=== PATIENT | female | born 1960 | race African-American/Black ===

== ENCOUNTER 2017-08-12 17:47 | Emergency (ER) | payer MEDICAID, OTHER ==
[~2017-08-12] VITALS: Ht 165.1 cm; Wt 90.0 kg
[~2017-08-12 17:47] MED LIST: AMIT75 PO; DICY1TAB26 PO; HYDR-2768 PO; PANT20 PO; PERC10TA27 PO
[2017-08-12] MEDS ORDERED: IOHEXOL 350 MG/ML 10 ML VIAL (for RAD DIAG) IVCONTRAST ONE (17:48)
[2017-08-12 17:56] VITALS: BP 178/97; PULSE 74; RESP 15; TEMP 98; O2SAT 99
[2017-08-12] MEDS ORDERED: SODIUM CHLORIDE 0.9% FLUSH 10 ML FLUSH IV FLUSH PRN (18:30)
--- NOTE | 2017-08-12 18:30 | PD ---
HPI Chief Complaint: Pain: Acute or Chronic Time Seen by Provider: 18:18 Travel History International Travel<30 days: No Contact w/Intl Traveler<30days: No Traveled to known affect area: No History of Present Illness HPI 57-year-old female presents for evaluation of left lower quadrant abdominal pain /left-sided lower back pain. Symptoms started 4 days ago. She describes it as a aching pain which is constant but worse when walking. Denies any dysuria, hematuria, flank pain, fevers or chills, nausea or vomiting, diarrhea or constipation, vaginal bleeding or discharge. She is not sexually active. She is postmenopausal. She has no other complaints at this time. PFSH Past Medical History Autoimmune Disease: Yes (FIBROMYALGIA) Anxiety: Yes Diminished Hearing: No Fibromyalgia: Yes Headaches: Yes Hypertension: Yes Musculoskeletal: Yes (CHRONIC BACK/LEG MUSCLE SPASMS, SCIATICA) Neurologic: Yes (C 5-6 "SPACED OUT") Immunizations Current: No Myocardial Infarction: Yes ?: Not Menopausal: Yes : 3 Para: 3 Tubal Ligation: Yes Social History Alcohol Use: No Tobacco Use: Yes (1/2 PPD) Substance Use: No Allergies-Medications (Allergen,Severity, Reaction): Coded Allergies: No Known Allergies (Verified Adverse Reaction, Unknown, 08/12/17) Reported Meds & Prescriptions Reported Meds & Active Scripts Active Naproxen 500 Mg Tab 500 Mg PO BID 10 Days Bentyl (Dicyclomine HCl) 20 Mg Tab 20 Mg PO Q8 Protonix (Pantoprazole Sodium) 20 Mg Tab 20 Mg PO DAILY Reported Hctz (Hydrochlorothiazide) 25 Mg Tab 25 Mg PO TID Percocet 10-325 mg (Oxycodone-Acetaminophen 10-325 mg) Oxycodone 10/325 Acetaminophen Tab 1 Tab PO Q6H PRN Elavil 75 Mg Tab (Amitriptyline HCl) 75 Mg Tab 75 Mg PO HS Review of Systems Except as stated in HPI: all other systems reviewed are Neg Physical Exam Narrative GENERAL: Well-developed well-nourished female no acute distress SKIN: Warm and dry. HEAD: Atraumatic. Normocephalic. EYES: Pupils equal and round. No scleral icterus. No injection or drainage. ENT: No nasal bleeding or discharge. Mucous membranes pink and moist. NECK: Trachea midline. No JVD. CARDIOVASCULAR: Regular rate and rhythm. No murmur appreciated. RESPIRATORY: No accessory muscle use. Clear to auscultation. Breath sounds equal bilaterally. GASTROINTESTINAL: Abdomen soft, mild left lower quadrant tenderness without guarding. No CVA tenderness. MUSCULOSKELETAL: No obvious deformities. No clubbing. No cyanosis. No edema. NEUROLOGICAL: Awake and alert. No obvious cranial nerve deficits. Motor grossly within normal limits. Normal speech. Data Data Last Documented VS Vital Signs Date Time Temp Pulse Resp B/P (MAP) Pulse Ox O2 Delivery O2 Flow Rate FiO2 08/12/17 19:15 64 17 166/86 (112) 98 Nasal Cannula 2.00 08/12/17 17:56 98.0 Orders Orders Urinalysis - C+S If Indicated (08/12/17 18:04) Complete Blood Count With Diff (08/12/17 18:23) Comprehensive Metabolic Panel (08/12/17 18:23) Lipase (08/12/17 18:23) Ct Abd/Pel W Iv Contrast(Rout) (08/12/17 18:23) Iv Access Insert/Monitor (08/12/17 18:23) Ecg Monitoring (08/12/17 18:23) Oximetry (08/12/17 18:23) Sodium Chloride 0.9% Flush (Ns Flush) (08/12/17 18:30) Iohexol 350 Inj (Omnipaque 350 Inj) (08/12/17 17:48) Ed Discharge Order (08/12/17 21:32) Ketorolac Inj (Toradol Inj) (08/12/17 21:45) Labs Laboratory Tests Test 08/12/17 18:08 08/12/17 18:35 Urine Color YELLOW Urine Turbidity CLEAR Urine pH 5.5 Urine Specific [place]orton 1.013 Urine Protein NEG mg/dL Urine Glucose (UA) NEG mg/dL Urine Ketones NEG mg/dL Urine Occult Blood NEG Urine Nitrite NEG Urine Bilirubin NEG Urine Urobilinogen LESS THAN 2.0 MG/DL Urine Leukocyte Esterase SMALL Urine WBC 2 /hpf Urine Squamous Epithelial Cells <1 /hpf Urine Hyaline Casts 3 /lpf Microscopic Urinalysis Comment CULT NOT INDICATED White Blood Count 6.5 TH/MM3 Red Blood Count 3.97 MIL/MM3 Hemoglobin 13.0 GM/DL Hematocrit 38.8 % Mean Corpuscular Volume 97.8 FL Mean Corpuscular Hemoglobin 32.9 PG Mean Corpuscular Hemoglobin Concent 33.6 % Red Cell Distribution Width 13.6 % Platelet Count 327 TH/MM3 Mean Platelet Volume 7.1 FL Neutrophils (%) (Auto) 42.4 % Lymphocytes (%) (Auto) 43.9 % Monocytes (%) (Auto) 10.8 % Eosinophils (%) (Auto) 1.8 % Basophils (%) (Auto) 1.1 % Neutrophils # (Auto) 2.8 TH/MM3 Lymphocytes # (Auto) 2.8 TH/MM3 Monocytes # (Auto) 0.7 TH/MM3 Eosinophils # (Auto) 0.1 TH/MM3 Basophils # (Auto) 0.1 TH/MM3 CBC Comment DIFF FINAL Differential Comment Blood Urea Nitrogen 13 MG/DL Creatinine 0.97 MG/DL Random Glucose 69 MG/DL Total Protein 7.3 GM/DL Albumin 3.8 GM/DL Calcium Level 9.0 MG/DL Alkaline Phosphatase 117 U/L Aspartate Amino Transf (AST/SGOT) 21 U/L Alanine Aminotransferase (ALT/SGPT) 20 U/L Total Bilirubin 0.2 MG/DL Sodium Level 142 MEQ/L Potassium Level 4.3 MEQ/L Chloride Level 108 MEQ/L Carbon Dioxide Level 25.5 MEQ/L Anion Gap 9 MEQ/L Estimat Glomerular Filtration Rate 72 ML/MIN Lipase 220 U/L MDM Medical Decision Making Medical Screen Exam Complete: Yes Emergency Medical Condition: Yes Medical Record Reviewed: Yes Differential Diagnosis Diverticulitis, muscle strain, colitis, UTI, hydronephrosis, stone Narrative Course Plan is for lab work, urinalysis, CT abdomen pelvis. Lab work and imaging studies are reassuring. CT abdomen and pelvis reveals no acute abnormality's. CMP reveals a random glucose of 69, the patient is hungry and she will be given something to eat. She is able tolerate food with no difficulty. Her pain may be musculoskeletal, is worse with walking and it is reproduced with flexion of the left leg against resistance. In retrospect she reports that her pitbull may have pulled her when she was walking. at this point in time the plan will be to treat the patient with a short course of NSAIDs. She will be given Toradol here and discharged with naproxen. Discussed signs and symptoms that would warrant returning to the emergency room. Stable for discharge. Diagnosis Primary Impression: Abdominal pain Additional Instructions: Medication as needed. Avoid strenuous activity. Follow-up with primary care physician in 1 week. Return for any acutely new or worsening symptoms. Med/Other Pt SpecificInfo: Prescription(s) given Scripts Naproxen (Naproxen) 500 Mg Tab 500 MG PO BID for 10 Days, #20 TAB 0 Refills Prov: Lubna Velzo MD 08/12/17 Disposition: 01 DISCHARGE HOME Condition: Stable Armando Thompson August 12, 2017 18:30
[2017-08-12 18:31] VITALS: RESP 15; O2SAT 99
[2017-08-12 18:42] LABS: BILIRUBIN, URINE NEG (NEG); BLOOD, URINE NEG (NEG); GLUCOSE,URINE NEG (NEG); HYALINE CAST, URINE 3 /lpf (RARE); KETONE, URINE NEG (NEG); NITRITE,URINE NEG (NEG); PH, URINE 5.5 (5.0-8.5); SQUAMOUS EPITHELIAL CELL URINE <1 /hpf (0-5); URINE COLOR YELLOW (YELLW/STRAW); URINE LEUKOCYTE ESTERASE SMALL (NEG)
[2017-08-12 18:48] LABS: AUTOMATED NEUTROPHIL # 2.8 TH/MM3 (1.8-7.7); BASOPHIL # 0.1 TH/MM3 (0-0.2); BASOPHIL % 1.1 % (0.0-2.0); EOSINOPHIL # 0.1 TH/MM3 (0-0.4); EOSINOPHIL % 1.8 % (0.0-4.0); HEMATOCRIT 38.8 % (35.0-46.0); LYMPH % 43.9 % (9.0-44.0); LYMPHOCYTE # 2.8 TH/MM3 (1.0-4.8); MEAN CELL VOLUME 97.8 FL (80.0-100.0); MEAN CORPUSCULAR HEMOGLOBIN 32.9 PG (27.0-34.0); MEAN CORPUSCULAR HGB CONC 33.6 % (32.0-36.0); MEAN PLATELET VOLUME 7.1 FL (7.0-11.0); MONO % 10.8 % (0.0-8.0); MONOCYTE # 0.7 TH/MM3 (0-0.9); NEUT % 42.4 % (16.0-70.0); PLATELET COUNT 327 TH/MM3 (150-450); RED BLOOD COUNT 3.97 MIL/MM3 (4.00-5.30); RED CELL DISTRIBUTION WIDTH 13.6 % (11.6-17.2); WHITE BLOOD COUNT 6.5 TH/MM3 (4.0-11.0)
[2017-08-12 18:50] VITALS: BP 157/83; PULSE 66; RESP 17; O2SAT 96
[2017-08-12 19:10] VITALS: PULSE 62; RESP 15; O2SAT 88
[2017-08-12 19:13] LABS: ALBUMIN 3.8 GM/DL (3.4-5.0); AST (GOT) 21 U/L (15-37); BICARBONATE 25.5 MEQ/L (21.0-32.0); BLOOD UREA NITROGEN 13 MG/DL (7-18); CHLORIDE 108 MEQ/L (98-107); CREATININE 0.97 MG/DL (0.50-1.00); GLOMERULAR FILTRATION RATE 72 ML/MIN (>89); GLUCOSE,RANDOM 69 MG/DL (74-106); SODIUM (NA) 142 MEQ/L (136-145)
[2017-08-12 19:14] LABS: ALT (GPT) 20 U/L (10-53)
[2017-08-12 19:15] VITALS: BP 166/86; PULSE 64; RESP 17; O2SAT 98
[2017-08-12 19:16] LABS: ALKALINE PHOSPHATASE 117 U/L (45-117); TOTAL BILIRUBIN ADULT 0.2 MG/DL (0.2-1.0); TOTAL PROTEIN 7.3 GM/DL (6.4-8.2)
--- NOTE | 2017-08-12 21:07 | RADRPT ---
EXAM DATE/TIME: 08/12/2017 19:44 [facility] COMPARISON: No previous studies available for comparison. INDICATIONS : Left side pain radiating to back and down leg IV CONTRAST: 90 cc Omnipaque 350 (iohexol) IV ORAL CONTRAST: No oral contrast ingested. RADIATION DOSE: 9.43 CTDIvol (mGy) MEDICAL HISTORY : Cardiovascular disease. Fibromyalgia SURGICAL HISTORY : Tubal ligation. ENCOUNTER: Initial ACUITY: 4 - 6 days PAIN SCALE: 8/10 LOCATION: Left Abdomen TECHNIQUE: Volumetric scanning of the abdomen and pelvis was performed. Using automated exposure control and ad justment of the mA and/or kV according to patient size, radiation dose was kept as low as reasonably achievable to obtain optimal diagnostic quality images. DICOM format image data is available electro nically for review and comparison. FINDINGS: LOWER LUNGS: The visualized lower lungs are clear. LIVER: Homogeneous density without lesion. There is no dilation of the biliary tree. No calcified gallston es. SPLEEN: Normal size without lesion. PANCREAS: Within normal limits. KIDNEYS: Small parapelvic left renal cyst. No evidence of hydronephrosis or stone. ADRENAL GLANDS: Within normal limits. VASCULAR: There is no aortic aneurysm. BOWEL/MESENTERY: The stomach, small bowel, and colon demonstrate no acute abnormality. There is no free intraperitone al air or fluid. ABDOMINAL WALL: Within normal limits. RETROPERITONEUM: There is no lymphadenopathy. BLADDER: No wall thickening or mass. REPRODUCTIVE: Within normal limits. INGUINAL: There is no lymphadenopathy or hernia. MUSCULOSKELETAL: No acute findings CONCLUSION: No acute CT findings in the abdomen or pelvis. Uriel Taylor MD on August 12, 2017 at 21:00 Board Certified Radiologist. This report was verified electronically.
[2017-08-12] MEDS ORDERED: NAPR500T2 PO (21:34)
[2017-08-12] MEDS ORDERED: KETOROLAC TROMETHAMINE 30 MG/ML (IVP) VIAL IV PUSH ONE (21:45)
== END 2017-08-12 22:23 | disposition home or self-care (01) ==
LOC: NEPE 17:47
DX: R10.32 Left lower quadrant pain (principal); F17.200 Nicotine dependence, unspecified, uncomplicated; I10 Essential (primary) hypertension; M79.7 Fibromyalgia
CPT/HCPCS: 74177; 80053; 81001; 83690; 85025; 96374; 99284; J1885; Q9967